=== PATIENT | female | born 1995 | race American Indian/Alaskan Native ===

== ENCOUNTER 2017-03-31 02:36 | Emergency (ER) | payer SELFPAY ==
[2017-03-31 03:18] VITALS: BP 114/65
== END 2017-03-31 03:16 ==
LOC: ED 02:36
DX: M54.9 Dorsalgia, unspecified (principal); R45.851 Suicidal ideations; Z53.21 Procedure and treatment not carried out due to patient leaving prior to being seen by health care provider